=== PATIENT | female | born 1965 | race Caucasian/White ===

== ENCOUNTER 2022-05-04 08:51 | Outpatient (CLI) | payer OTHER ==
[~2022-05-04] VITALS: Ht 162.6 cm; Wt 94.0 kg
[2022-05-04] VITALS (7 sets, daily range): BP systolic 123–148; BP diastolic 66–81; PULSE 61–69; TEMP 98.5
[~2022-05-04 08:51] MED LIST: K2-4545 MCG PO; MAG-OX 400400 MG/TAB PO; NATURAL IRON65 MG PO; OMEGA-31 SGL PO; PHARMASSURE CHE30 MG PO; VITAMIN B12 1541 TAB PO; VITAMIN D31000 IU PO; VITAMINC1000TA PO
[2022-05-04 11:24] LABS: CSF APPEARANCE CLEAR; CSF COLOR COLORLESS
[2022-05-04 11:25] LABS: CSF RBC 4 /mm3 (0-0)
[2022-05-04 11:28] LABS: GLUCOSE,CSF 67 mg/dL (40-70); TOTAL PROTEIN,CSF 60 mg/dL (15-45)
[2022-05-04 11:43] LABS: CSF MONONUCLEAR 100 % (70-100); CSF POLYMORPHONUCLEAR 0 % (0-6)
--- NOTE | 2022-05-04 12:30 | NUR ---
Discharge education given to pt, pt verbalized understanding. Pt discharged via wheelchair to exit with waiting to pick her up.
[2022-05-07 10:00] LABS: ALBUMIN CSF 38.1 mg/dL (<=27.0)
[2022-05-07 10:03] LABS: IGG/ALBUMIN SERUM 0.22 (<=0.40)
[2022-05-07 10:16] LABS: CSF IGG/ALBUMIN 0.11 (<=0.21); CSF SYNTHESIS RATE 1.34 mg/24 h (<=12); CSF,IGG 4.2 mg/dL (<=8.1); CSF-IGG INDEX 0.5 (<=0.85)
== END 2022-05-04 12:30 | disposition home or self-care (01) ==
LOC: COL.RAD 08:51
PROVIDERS: Psychiatry & Neurology Neurology
DX: R26.89 Other abnormalities of gait and mobility (principal); R42 Dizziness and giddiness; R41.89 Other symptoms and signs involving cognitive functions and awareness; R27.0 Ataxia, unspecified; G43.009 Migraine without aura, not intractable, without status migrainosus

== ENCOUNTER 2022-05-06 15:23 | Emergency (ER) | payer OTHER ==
[~2022-05-06] VITALS: Ht 162.6 cm; Wt 93.2 kg
[2022-05-06 15:38] VITALS: TEMP 98.2
[2022-05-06 20:55] VITALS: BP 127/77; PULSE 82
== END 2022-05-06 20:55 | disposition home or self-care (01) ==
LOC: COL.ER 15:23
DX: G97.1 Other reaction to spinal and lumbar puncture (principal); Z28.310 Unvaccinated for COVID-19